=== PATIENT | female | born 1970 | race American Indian/Alaskan Native ===

== ENCOUNTER 2019-06-20 12:39 | Outpatient (CLI) | payer BC ==
[2019-06-22 04:03] LABS: Gamma Globulin 1.7 g/dL (0.8-1.7)
[2019-06-26 21:59] LABS: ANA Screen, IFA Negative (Negative)
== END 2019-06-20 12:40 | disposition home or self-care (01) ==
LOC: LAB 12:39
PROVIDERS: ATTEND Specialist
DX: G65.1 Sequelae of other inflammatory polyneuropathy (principal); G62.9 Polyneuropathy, unspecified; I11.0 Hypertensive heart disease with heart failure; I50.9 Heart failure, unspecified
CPT/HCPCS: 36415; 83036; 83921; 84165; 84443; 85652; 86038; 86334; 86592

== ENCOUNTER 2019-09-21 16:02 | Emergency (ER) | payer BC ==
[2019-09-21 17:07] VITALS: BP 120/80
[2019-09-21 17:58] LABS: Basophils # (Auto) 0.1 K/mm3 (0.0-0.1); Basophils % (Auto) 0.4 % (0.0-1.8); Eosinophils # (Auto) 0.3 K/mm3 (0.0-0.4); Eosinophils % (Auto) 1.9 % (0.0-4.3); Hematocrit 37.7 % (30.3-42.9); Hemoglobin 12.6 gm/dl (10.1-14.3); Lymphocytes # (Auto) 1.4 K/mm3 (1.2-5.4); Lymphocytes % (Auto) 10.2 % (13.4-35.0); Mean Corpuscular HGB Conc 33 % (30-34); Mean Corpuscular Volume 92 fl (79-97); Monocytes # (Auto) 1.2 K/mm3 (0.0-0.8); Monocytes % (Auto) 8.6 % (0.0-7.3); Platelet Count 318 K/mm3 (140-440); Red Cell Distribution Width 15.4 % (13.2-15.2)
--- NOTE | 2019-09-21 18:14 | Event Note ---
ED Screening Note Date of service: 09/21/19 Time: 18:12 ED Screening Note: 49 y o female presents cc bilateral knee to leg pain x 3 days ago no trauma or injuries PMH: HTN, FIbromyalgia, CHF This initial assessment/diagnostic orders/clinical plan/treatment(s) is/are subject to change based on patients health status, clinical progression and re- assessment by fellow clinical providers in the ED. Further treatment and workup at subsequent clinical providers discretion. Patient/guardian urged not to elope from the ED as their condition may be serious if not clinically assessed and managed. Initial orders include:
[2019-09-21 18:22] LABS: Albumin 3.8 g/dL (3.9-5); Calcium 9.7 mg/dL (8.4-10.2)
--- NOTE | 2019-09-21 18:32 | Emergency Department Report ---
HPI - General Chief Complaint: Extremity Injury, Lower Time Seen by Provider: 09/21/19 18:19 - HPI HPI: This is a 49-year-old female with a history of fibromyalgia who presents to ED complaining of bilateral knee pain for the past couple of days. Patient states that she takes gabapentin and she is not given any relief. Patient denies any injuries to the knees. Patient states pain is worsened with applied pressure. She denies fevers/chills/nausea vomiting ED Past Medical Hx - Past Medical History Previous Medical History?: Yes Hx Hypertension: Yes Hx Congestive Heart Failure: Yes Hx Renal Disease: Yes (no dialysis) Hx Arthritis: Yes Hx Psychiatric Treatment: Yes (depression) Additional medical history: Fibromyalgia. Renal Failure. - Surgical History Past Surgical History?: Yes Additional Surgical History: - Social History Smoking Status: Never Smoker - Medications Home Medications: Home Medications Medication Instructions Recorded Confirmed Last Taken Type Azithromycin [Zithromax Z-IZZY] 250 mg PO DAILY #6 tablet 12/06/14 Unknown Rx HYDROcodone/ACETAMINOPHEN [[place] 1 each PO Q6H #14 tablet 12/06/14 Unknown Rx 7.5-325 mg TAB] Ibuprofen [Motrin] 800 mg PO Q8HR PRN #15 tablet 11/04/16 Unknown Rx Sulfamethoxazole/Trimethoprim 1 each PO BID #14 tablet 11/04/16 Unknown Rx [Bactrim DS TAB] cephALEXin [Keflex] 500 mg PO Q12HR #14 cap 11/04/16 Unknown Rx HYDROcodone/APAP 5-325 [[place] 1 each PO Q6HR PRN #10 tablet 09/21/19 Unknown Rx 5/325] Meloxicam [Mobic] 7.5 mg PO QDAY #20 tablet 09/21/19 Unknown Rx ED Review of Systems ROS: Stated complaint: LEG PAIN Other details as noted in HPI Comment: All other systems reviewed and negative Physical Exam - Physical Exam Vital Signs: Vital Signs 09/21/19 17:06 Temperature 97.4 F L Pulse Rate 87 Respiratory 18 Rate Blood Pressure 120/80 O2 Sat by Pulse 100 Oximetry Physical Exam: GENERAL: Alert and oriented x3, no apparent distress, Normal Gait, atraumatic. HEAD: Head is normocephalic and a-traumatic. NECK: Supple. Non edematous, No carotid bruits. No lymphadenopathy or thyromegaly. No C-spine tenderness LUNGS: Symetrical with respiration, No wheezing, no rales or crackles, CTAB. HEART: S1, S2 present, regular rate and rhythm without murmur, no rubs, no gallops. Non tender to palpation BACK: Full range of motion, no spinal tenderness, nontender to palpation. EXTREMITIES/MUSCULOSKELETAL: No cyanosis, clubbing, rash, lesions or edema. Full ROM bilaterally. UE/LE Pulses 2+ bilaterally. LE and UE 5+ strength bilaterally, straight leg raise negative bilaterally. Bilaterally is tender to palpation, no swelling, no erythema NEUROLOGIC: The patient is cooperative with no focal neurologic deficits. Cranial nerves II through XII are grossly intact. Normal speech. Normal sensation in bilateral upper and lower extremities, No loss of sensation, SKIN: Warm and dry, No lesions, No ulceration or induration present. ED Course Vital Signs 09/21/19 17:06 Temperature 97.4 F L Pulse Rate 87 Respiratory 18 Rate Blood Pressure 120/80 O2 Sat by Pulse 100 Oximetry ED Medical Decision Making - Lab Data Result diagrams: 09/21/19 17:42 09/21/19 17:42 Laboratory Last Values WBC 13.7 K/mm3 (4.5-11.0) H 09/21/19 17:42 RBC 4.10 M/mm3 (3.65-5.03) 09/21/19 17:42 Hgb 12.6 gm/dl (10.1-14.3) 09/21/19 17:42 Hct 37.7 % (30.3-42.9) 09/21/19 17:42 MCV 92 fl (79-97) 09/21/19 17:42 MCH 31 pg (28-32) 09/21/19 17:42 MCHC 33 % (30-34) 09/21/19 17:42 RDW 15.4 % (13.2-15.2) H 09/21/19 17:42 Plt Count 318 K/mm3 (140-440) 09/21/19 17:42 Lymph % (Auto) 10.2 % (13.4-35.0) L 09/21/19 17:42 [place] % (Auto) 8.6 % (0.0-7.3) H 09/21/19 17:42 Eos % (Auto) 1.9 % (0.0-4.3) 09/21/19 17:42 Baso % (Auto) 0.4 % (0.0-1.8) 09/21/19 17:42 Lymph # 1.4 K/mm3 (1.2-5.4) 09/21/19 17:42 [place] # 1.2 K/mm3 (0.0-0.8) H 09/21/19 17:42 Eos # 0.3 K/mm3 (0.0-0.4) 09/21/19 17:42 Baso # 0.1 K/mm3 (0.0-0.1) 09/21/19 17:42 Seg Neutrophils % 78.9 % (40.0-70.0) H 09/21/19 17:42 Seg Neutrophils # 10.8 K/mm3 (1.8-7.7) H 09/21/19 17:42 Sodium 135 mmol/L (137-145) L 09/21/19 17:42 Potassium 4.4 mmol/L (3.6-5.0) 09/21/19 17:42 Chloride 95.8 mmol/L (98-107) L 09/21/19 17:42 Carbon Dioxide 23 mmol/L (22-30) 09/21/19 17:42 Anion Gap 21 mmol/L 09/21/19 17:42 BUN 24 mg/dL (7-17) H 09/21/19 17:42 Creatinine 2.2 mg/dL (0.7-1.2) H 09/21/19 17:42 Estimated GFR 28 ml/min 09/21/19 17:42 BUN/Creatinine Ratio 11 % 09/21/19 17:42 Glucose 106 mg/dL (65-100) H 09/21/19 17:42 Calcium 9.7 mg/dL (8.4-10.2) 09/21/19 17:42 Total Bilirubin 0.40 mg/dL (0.1-1.2) 09/21/19 17:42 AST 38 units/L (5-40) 09/21/19 17:42 ALT 30 units/L (7-56) 09/21/19 17:42 Alkaline Phosphatase 116 units/L (35-129) 09/21/19 17:42 Total Protein 8.5 g/dL (6.3-8.2) H 09/21/19 17:42 Albumin 3.8 g/dL (3.9-5) L 09/21/19 17:42 Albumin/Globulin Ratio 0.8 % 09/21/19 17:42 - Medical Decision Making 49-year-old female presents to ED with lateral knee pain secondary to DJD/fibr omyalgia Patient currently sees neurologist and currently taking gabapentin and which is not relieving her pain. Discussed the patient to follow-up with an orthopedic doctor for joint disease Vital signs are normal patient is in no acute distress Discussed with patient follow-up with primary care physician. Discussed the patient and take medications as prescribed. Patient has no neurological deficit. Patient is alert and oriented 3 and understands all instructions given. Discussed drowsiness effect of Flexeril makes her drowsy and not to operate machinery while taking flexeril Critical care attestation.: If time is entered above; I have spent that time in minutes in the direct care of this critically ill patient, excluding procedure time. ED Disposition Clinical Impression: Bilateral knee pain, Fibromyalgia Disposition: TO HOME OR SELFCARE Is pt being admited?: No Does the pt Need Aspirin: No Condition: Stable Instructions: Fibromyalgia (ED), Trigger Point Pain (ED), Arthralgia (ED) Additional Instructions: follow up with pcp follow up with orthopedics Prescriptions: Meloxicam [Mobic] 7.5 mg PO QDAY #20 tablet HYDROcodone/APAP 5-325 [[place] 5/325] 1 each PO Q6HR PRN #10 tablet PRN Reason: Pain Referrals: KAILYN ERICKSON MD [Staff Physician] - 3-5 Days [facility] [Provider Group] - 3-5 Days [facility]IN SPECIALIST [facility] [Provider Group] - 3-5 Days [facility], [facility] [Provider Group] - 3-5 Days Forms: Work/School Release Form(ED) Time of Disposition: 18:34
== END 2019-09-21 19:00 | disposition home or self-care (01) ==
LOC: ED 16:02
DX: M25.561 Pain in right knee (principal); M25.562 Pain in left knee; M79.7 Fibromyalgia; I13.0 Hypertensive heart and chronic kidney disease with heart failure and stage 1 through stage 4 chronic kidney disease, or unspecified chronic kidney disease; I50.9 Heart failure, unspecified; N18.9 Chronic kidney disease, unspecified; F32.9 Major depressive disorder, single episode, unspecified; Z79.1 Long term (current) use of non-steroidal anti-inflammatories (NSAID); Z79.899 Other long term (current) drug therapy
CPT/HCPCS: 36415; 80053; 85025; 99283

== ENCOUNTER 2021-04-03 21:28 | Emergency (ER) | payer SELFPAY ==
--- NOTE | 2021-04-04 01:14 | XRay Report ---
HISTORY:Right knee pain and swelling. COMPARISON: None. TECHNIQUE: AP lateral and obliques views were obtained FINDINGS: Bones: No fracture or dislocation. Joint spaces: Degenerative changes of moderate severity patellofemoral articulation. Mild narrowing o f the femoral tibial articulation. Soft tissues: No significant abnormality. Additional findings: None. IMPRESSION: 1. No significant abnormality. Degenerative changes as noted Signer Name: Helio Uriarte MD Signed: 04/04/2021 1:10 AM Workstation Name: [id number]
--- NOTE | 2021-04-04 02:18 | Emergency Department Report ---
ED Lower Extremity HPI - General Chief Complaint: Extremity Injury, Lower Stated Complaint: LUMP ON RT LUMP Time Seen by Provider: 04/04/21 00:44 Source: patient Mode of arrival: Ambulatory Limitations: No Limitations - History of Present Illness Initial Comments: 50-year-old obese [place] female placement department complaining of knee pain and injury secondary to a fall on her deck over a week ago. She states the following the fall she is she developed swelling and hematoma and significant bruising to her right knee which was followed by pain and progressively worsening ambulation was letter to a second fall yesterday. Pain is dull and throbbing worse with palpation and range of motion and ambulation she reports no numbness or tingling. Injury: Knee: Right Type of Injury: blunt Place: home Severity: mild Improves With: nothing Worsens With: nothing Context: direct blow Associated Symptoms: snap/pop sensation, swelling Treatments Prior to Arrival: cold therapy - Related Data Previous Rx's Medication Instructions Recorded Last Taken Type Azithromycin [Zithromax Z-IZZY] 250 mg PO DAILY #6 tablet 12/06/14 Unknown Rx HYDROcodone/ACETAMINOPHEN [[place] 1 each PO Q6H #14 tablet 12/06/14 Unknown Rx 7.5-325 mg TAB] Ibuprofen [Motrin] 800 mg PO Q8HR PRN #15 tablet 11/04/16 Unknown Rx Sulfamethoxazole/Trimethoprim 1 each PO BID #14 tablet 11/04/16 Unknown Rx [Bactrim DS TAB] cephALEXin [Keflex] 500 mg PO Q12HR #14 cap 11/04/16 Unknown Rx HYDROcodone/APAP 5-325 [[place] 1 each PO Q6HR PRN #10 tablet 09/21/19 Unknown Rx 5/325] Meloxicam [Mobic] 7.5 mg PO QDAY #20 tablet 09/21/19 Unknown Rx Acetaminophen/Codeine [Tylenol 1 tab PO Q6H PRN #14 tab 04/04/21 Unknown Rx /Codeine # 3 tab] Allergies Allergy/AdvReac Type Severity Reaction Status Date / Time No Known Allergies Allergy Unverified 12/06/14 18:25 ED Review of Systems ROS: Stated complaint: LUMP ON RT LUMP Other details as noted in HPI Comment: All other systems reviewed and negative ED Past Medical Hx - Past Medical History Previous Medical History?: Yes Hx Hypertension: Yes Hx Congestive Heart Failure: Yes Hx Renal Disease: Yes (no dialysis) Hx Arthritis: Yes Hx Psychiatric Treatment: Yes (depression, Anxiety) Additional medical history: Fibromyalgia. Renal Failure. Vertigo. Chronic pain - Surgical History Past Surgical History?: Yes Additional Surgical History: - Social History Smoking Status: Never Smoker Substance Use Type: None - Medications Home Medications: Home Medications Medication Instructions Recorded Confirmed Last Taken Type Azithromycin [Zithromax Z-IZZY] 250 mg PO DAILY #6 tablet 12/06/14 Unknown Rx HYDROcodone/ACETAMINOPHEN [[place] 1 each PO Q6H #14 tablet 12/06/14 Unknown Rx 7.5-325 mg TAB] Ibuprofen [Motrin] 800 mg PO Q8HR PRN #15 tablet 11/04/16 Unknown Rx Sulfamethoxazole/Trimethoprim 1 each PO BID #14 tablet 11/04/16 Unknown Rx [Bactrim DS TAB] cephALEXin [Keflex] 500 mg PO Q12HR #14 cap 11/04/16 Unknown Rx HYDROcodone/APAP 5-325 [[place] 1 each PO Q6HR PRN #10 tablet 09/21/19 Unknown Rx 5/325] Meloxicam [Mobic] 7.5 mg PO QDAY #20 tablet 09/21/19 Unknown Rx Acetaminophen/Codeine [Tylenol 1 tab PO Q6H PRN #14 tab 04/04/21 Unknown Rx /Codeine # 3 tab] ED Physical Exam - General Limitations: No Limitations General appearance: alert, in no apparent distress - Head Head exam: Present: atraumatic, normocephalic - Eye Eye exam: Present: normal appearance, PERRL, EOMI Pupils: Present: normal accommodation - ENT ENT exam: Present: mucous membranes moist - Neck Neck exam: Present: normal inspection - Respiratory Respiratory exam: Present: normal lung sounds bilaterally. Absent: respiratory distress - Cardiovascular Cardiovascular Exam: Present: regular rate, normal rhythm. Absent: systolic murmur, diastolic murmur, rubs, gallop - GI/Abdominal GI/Abdominal exam: Present: soft, normal bowel sounds - Extremities Exam Extremities exam: Present: normal inspection - Back Exam Back exam: Present: normal inspection - Neurological Exam Neurological exam: Present: alert, oriented X3 - Psychiatric Psychiatric exam: Present: normal affect, normal mood - Skin Skin exam: Present: warm, dry, intact, normal color. Absent: rash ED Course Vital Signs 04/03/21 23:51 Temperature 98.2 F Pulse Rate 79 Respiratory 18 Rate Blood Pressure 152/60 [Left] O2 Sat by Pulse 99 Oximetry ED Lower Extremity MDM - Radiology Data Radiology results: report reviewed [address] [place] [address] XRay Report Signed Patient: MARIXA LOZA MR#: [id number] : 1970 Acct:[id number] Age/Sex: 50 / F ADM Date: 04/03/21 Loc: ED Attending Dr: Ordering Physician: ORTIZ TOTH MD Date of Service: 04/03/21 Procedure(s): XR knee 3V RT Accession Number(s): [id number] cc: ED MD JANEY Fluoro Time In Minutes: HISTORY:Right knee pain and swelling. COMPARISON: None. TECHNIQUE: AP lateral and obliques views were obtained FINDINGS: Bones: No fracture or dislocation. Joint spaces: Degenerative changes of moderate severity patellofemoral articulation. Mild narrowing of the femoral tibial articulation. Soft tissues: No significant abnormality. Additional findings: None. IMPRESSION: 1. No significant abnormality. Degenerative changes as noted Signer Name: Helio Uriarte MD Signed: 04/04/2021 1:10 AM Workstation Name: [id number] Transcribed By: WG Dictated By: Helio Uriarte MD Electronically Authenticated By: Helio Uriarte MD Signed Date/Time: 04/04/21109 DD/ 8 TD/TT: Print Cancel - Medical Decision Making 31-year-old obese [place] female status post fall on her deck with resulting in knee pain and swelling and hematoma. This appears to be some cortical separation to the medial aspect of her patella on the x-ray which is also the area of her pain. Also appears to be subacute. Critical care attestation.: If time is entered above; I have spent that time in minutes in the direct care of this critically ill patient, excluding procedure time. ED Disposition Clinical Impression: Contusion of knee, right Disposition: DC-01 TO HOME OR SELFCARE Is pt being admited?: No Does the pt Need Aspirin: No Condition: Stable Instructions: Periosteal Hematoma, Contusion, [id number], Patellar Fracture, Adult Prescriptions: Acetaminophen/Codeine [Tylenol /Codeine # 3 tab] 1 tab PO Q6H PRN #14 tab PRN Reason: knee pain Referrals: SUGEY DANIEL MD [Primary Care Provider] - 3-5 Days KAILYN ERICKSON MD [Staff Physician] - 3-5 Days
[2021-04-04 02:44] VITALS: BP 143/87
== END 2021-04-04 02:45 | disposition home or self-care (01) ==
LOC: ED 21:28
DX: S80.01XA Contusion of right knee, initial encounter (principal); I13.0 Hypertensive heart and chronic kidney disease with heart failure and stage 1 through stage 4 chronic kidney disease, or unspecified chronic kidney disease; N18.9 Chronic kidney disease, unspecified; I50.9 Heart failure, unspecified; F32.9 Major depressive disorder, single episode, unspecified; F41.9 Anxiety disorder, unspecified; M19.90 Unspecified osteoarthritis, unspecified site; Z79.899 Other long term (current) drug therapy; Z98.890 Other specified postprocedural states; X58.XXXA Exposure to other specified factors, initial encounter; Y93.89 Activity, other specified; Y92.89 Other specified places as the place of occurrence of the external cause; Y99.8 Other external cause status

== ENCOUNTER 2022-08-02 22:23 | Emergency (ER) | payer OTHER ==
[2022-08-02 22:31] VITALS: BP 168/102
--- NOTE | 2022-08-02 23:52 | XRay Report ---
CHEST 2 VIEWS INDICATION / CLINICAL INFORMATION: CHEST PAIN. COMPARISON: 12/09/2009 FINDINGS: SUPPORT DEVICES: None. HEART / MEDIASTINUM: No significant abnormality. LUNGS / PLEURA: No significant pulmonary or pleural abnormality. No pneumothorax. ADDITIONAL FINDINGS: None IMPRESSION: 1. No acute chest process. Signer Name: Geraldo Milan MD Signed: 08/02/2022 11:48 PM Workstation Name: [email or web address]
[2022-08-03 01:13] LABS: Alanine Aminotransferase 11 units/L (7-56); Albumin 4.1 g/dL (3.9-5); BUN/Creatinine Ratio 14; Blood Urea Nitrogen 27 mg/dL (7-17); Calcium 9.5 mg/dL (8.4-10.2); Hemolysis Index 15
[2022-08-03 01:18] LABS: Basophils # (Auto) 0.1 K/mm3 (0.0-0.1); Basophils % (Auto) 0.4 % (0.0-1.8); Eosinophils # (Auto) 0.3 K/mm3 (0.0-0.4); Eosinophils % (Auto) 2.3 % (0.0-4.3); Hematocrit 40.3 % (30.3-42.9); Hemoglobin 13.6 gm/dl (10.1-14.3); Lymphocytes # (Auto) 2.4 K/mm3 (1.2-5.4); Lymphocytes % (Auto) 17.6 % (13.4-35.0); Mean Corpuscular HGB Conc 34 % (30-34); Mean Corpuscular Volume 90 fl (79-97); Monocytes # (Auto) 0.7 K/mm3 (0.0-0.8); Monocytes % (Auto) 5.3 % (0.0-7.3); Platelet Count 285 K/mm3 (140-440); Red Blood Count 4.46 M/mm3 (3.65-5.03); Red Cell Distribution Width 14.4 % (13.2-15.2)
--- NOTE | 2022-08-06 12:39 | Electrocardiograph Report ---
[facility] Test Date: 2022-08-02 Test Time: 22:37:42 [facility]: Gender: F [employer] Maintenance Technician: ISAIAH : 1970 Requested By: MENG MICHAEL Order Number: [id number] Reading MD: Elver Fermin Measurements Intervals [place] Rate: 89 P: 66 MA: 197 QRS: -49 QRSD: 94 T: 99 QT: 396 QTc: 482 Interpretive Statements Sinus rhythm Left anterior fascicular block Anterior infarct, old No previous ECG available for comparison Electronically Signed On 08-06-2022 9:39:37 PDT by Elver Fermin
== END 2022-08-03 11:18 | disposition left against medical advice (07) ==
LOC: ED 22:23
DX: R07.9 Chest pain, unspecified (principal); M54.9 Dorsalgia, unspecified; Z53.21 Procedure and treatment not carried out due to patient leaving prior to being seen by health care provider
CPT/HCPCS: 36415; 71046; 80053; 84484; 85025; 93005